=== PATIENT | female | born 1985 | race Caucasian/White ===

== ENCOUNTER 2016-03-17 14:04 | Emergency (ER) | payer OTHER ==
[~2016-03-17] VITALS: Ht 160 cm; Wt 59.0 kg
[2016-03-17] MEDS ORDERED: LORazepam 1 MG TABLET PO ONE (15:30)
[2016-03-17 16:44] VITALS: BP 117/71
== END 2016-03-17 18:17 | disposition home or self-care (01) ==
LOC: EMS 14:06
DX: F41.9 Anxiety disorder, unspecified (principal)
CPT/HCPCS: 81025; 93005; 99285

== ENCOUNTER 2016-10-08 00:53 | Observation (INO) | payer OTHER ==
[~2016-10-08] VITALS: Ht 157.5 cm; Wt 68.0 kg
[2016-10-08] MEDS ORDERED: RINGERS SOLUTION,LACTATED 1,000 ML IV PRN (02:45)
[2016-10-08] MEDS ORDERED: CITRIC ACID/SODIUM CITRATE 30 ML SOLUTION UDCUP PO PRN (02:45)
[2016-10-08] MEDS ORDERED: FentaNYL CITRATE-PF 100 MCG/2 ML VIAL IVP PRN (02:45)
[2016-10-08] MEDS ORDERED: OXYTOCIN 30 UNITS/LACT RINGERS 500 ML IV ONE (02:45)
[2016-10-08] MEDS ORDERED: RINGERS SOLUTION,LACTATED 1,000 ML IV SCH (02:45)
[2016-10-08] MEDS ORDERED: METOCLOPRAMIDE HCL 5 MG/ML 2 ML VIAL IVP PRN (02:45)
[2016-10-08] MEDS ORDERED: OXYGEN THERAPY IH SCH (08:00)
== END 2016-10-08 03:20 | disposition home or self-care (01) ==
LOC: 4S 00:53
PROVIDERS: ADMIT Obstetrics & Gynecology; ATTEND Obstetrics & Gynecology
DX: O26.852 Spotting complicating pregnancy, second trimester (principal); O26.892 Other specified pregnancy related conditions, second trimester; R10.12 Left upper quadrant pain; Z3A.27 27 weeks gestation of pregnancy
CPT/HCPCS: 59025; G0378

== ENCOUNTER 2019-08-02 07:52 | Emergency (ER) | payer OTHER ==
[~2019-08-02] VITALS: Ht 157.5 cm; Wt 60.0 kg
[2019-08-02] MEDS ORDERED: KETOROLAC TROMETHAMINE 30 MG/ML VIAL IVP ONE (09:00)
[2019-08-02] MEDS ORDERED: ONDANSETRON HCL 4 MG/2 ML VIAL IVP ONE (09:00)
[2019-08-02] MEDS ORDERED: SODIUM CHLORIDE 0.9% 2,000 ML IV ONE (09:00)
[2019-08-02] MEDS ORDERED: ACETAMINOPHEN 500 MG TABLET PO ONE (09:00)
[2019-08-02 09:02] LABS: BASOPHILS % (AUTO) 0.2 % (0.0-2.0); EOSINOPHILS % (AUTO) 0 % (1.0-6.0); HEMATOCRIT 37.5 % (36-46); HEMOGLOBIN 12.9 g/dL (12.0-16.0); LYMPHOCYTES # (AUTO) 0.3 K/uL (1.0-4.8); LYMPHOCYTES % (AUTO) 2.1 % (22.0-44.0); MEAN CORPUSCULAR HEMOGLOBIN 30.5 pg (26.0-34.0); MEAN CORPUSCULAR HGB CONC 34.4 G/dL (31.0-37.0); MEAN CORPUSCULAR VOLUME 89 fL (80-100); MONOCYTES # (AUTO) 0.9 K/uL (0.1-1.0); NEUTROPHILS # (AUTO) 14.1 K/uL (1.8-7.7); PLATELET COUNT (AUTO) 196 K/uL (150-450); RED BLOOD CELL COUNT(AUTO) 4.23 MIL/uL (4.00-5.20); RED CELL DISTRIBUTION WIDTH 13.5 % (11.5-14.5)
[2019-08-02 09:03] LABS: NEUTROPHILS % (AUTO) 91.7 % (40.0-70.0)
[2019-08-02 09:12] LABS: ANION GAP 9 mmol/L (8-16); CALCIUM, TOTAL 8.2 mg/dL (8.8-10.5); CARBON DIOXIDE 26 mmol/L (22-29); CHLORIDE 98 mmol/L (98-107); GLOMERULAR FILTR. RATE CALC 58 mL/min (>60); GLUCOSE,RANDOM 133 mg/dL (70-110); POTASSIUM 4.1 mmol/L (3.5-5.1); SODIUM SERUM 133 mmol/L (136-145); UREA NITROGEN, BLOOD 14 mg/dL (7-18)
[2019-08-02 09:29] LABS: ALANINE AMINOTRANSFERASE 23 U/L (12-78); ALBUMIN 2.7 g/dL (3.4-5.0); ALKALINE PHOSPHATASE 82 U/L (46-116); ASPARTATE AMINOTRANSFERASE 20 U/L (15-37); BILIRUBIN,TOTAL 0.5 mg/dL (0.1-1.0); HCG,QUANTITATIVE < 1 mIU/mL (0-6); LIPASE 46 U/L (73-393)
[2019-08-02 09:39] LABS: LACTIC ACID 1.4 mmol/L (0.4-2.0)
[2019-08-02 11:54] LABS: APPEARANCE,URINE CLOUDY (CLEAR); BILIRUBIN,URINE NEGATIVE (NEGATIVE); GLUCOSE, URINE (UA) NEGATIVE (NEGATIVE); KETONES,URINE NEGATIVE (NEGATIVE); LEUKOCYTE ESTERASE ,URINE MODERATE (NEGATIVE); NITRATE,URINE POSITIVE (NEGATIVE); PH,URINE 5.5 (5.0-8.0); PROTEIN,URINE SEE CONFIRM (NEGATIVE); UROBILINOGEN,URINE 0.2 mg/dL (<=1.0)
[2019-08-02 12:02] LABS: OCCULT BLOOD,URINE MODERATE (NEGATIVE); SULFOSALICYLIC ACID,URINE 3+ (Negative)
[2019-08-02 12:03] LABS: BACTERIA,URINE Many /HPF (None Seen); SQUAMOUS EPITHELIAL CELL,UR Many /LPF (None Seen)
[2019-08-02] MEDS ORDERED: CefTRIAXone 1 GM/DEXTROSE 50 ML IV ONE (13:00)
[2019-08-02 14:02] VITALS: BP 119/59
== END 2019-08-02 14:08 | disposition home or self-care (01) ==
LOC: EMS 07:52
DX: N39.0 Urinary tract infection, site not specified (principal); B34.9 Viral infection, unspecified; E86.0 Dehydration; R10.84 Generalized abdominal pain; Z20.828 Contact with and (suspected) exposure to other viral communicable diseases
CPT/HCPCS: 36415; 80053; 81001; 83605; 83690; 84484; 84702; 85025; 87077; 87086; 87186; 87635; 96361; 96365; 96375; 99285; J0696; J1885; J2405; J7030; U0003

== ENCOUNTER 2024-09-25 17:09 | Emergency (ER) | payer OTHER ==
[~2024-09-25] VITALS: Ht 157.5 cm; Wt 59.5 kg
[2024-09-25 17:16] VITALS: BP 131/85; PULSE 86; RESP 18; TEMP 98; O2SAT 99
[2024-09-25] MEDS: LIDOCAINE 5% TRANSDERMAL PATCH TD ONE (18:47)
[2024-09-25] MEDS: ACETAMINOPHEN 500 MG TABLET PO ONE (18:47)
[2024-09-25] MEDS ORDERED: IBUP-1492 PO (20:47)
[2024-09-25] MEDS ORDERED: ACET-3385 PO (20:47)
== END 2024-09-25 21:03 | disposition home or self-care (01) ==
LOC: EMS 17:09
DX: S16.1XXA Strain of muscle, fascia and tendon at neck level, initial encounter (principal); Z98.890 Other specified postprocedural states; V29.99XA Rider (driver) (passenger) of other motorcycle injured in unspecified traffic accident, initial encounter; Y93.89 Activity, other specified; Y92.488 Other paved roadways as the place of occurrence of the external cause; Y99.8 Other external cause status
CPT/HCPCS: 70450; 72125; 99284

== ENCOUNTER 2024-10-14 10:16 | Emergency (ER) | payer OTHER ==
[~2024-10-14] VITALS: Ht 157.5 cm; Wt 59.0 kg
[~2024-10-14 10:16] MED LIST: ACET-3385 PO; IBUP-1492 PO
[2024-10-14 10:24] VITALS: BP 102/76; PULSE 85; RESP 18; TEMP 97.3; O2SAT 98
[2024-10-14 10:39] LABS: APPEARANCE,URINE CLEAR (CLEAR); GLUCOSE, URINE (UA) NEGATIVE (NEGATIVE); LEUKOCYTE ESTERASE ,URINE NEGATIVE (NEGATIVE); NITRATE,URINE NEGATIVE (NEGATIVE); OCCULT BLOOD,URINE SMALL (NEGATIVE); SPECIFIC GRAVITIY, URINE 1.026 (1.003-1.030)
[2024-10-14 11:07] LABS: SQUAMOUS EPITHELIAL CELL,UR Few /LPF (None Seen)
[2024-10-14 11:09] LABS: HCG,QUAL URINE NEGATIVE (NEGATIVE)
[2024-10-14 12:40] LABS: PLATELET COUNT (AUTO) 357 K/uL (150-450); RED BLOOD CELL COUNT(AUTO) 4.91 MIL/uL (4.00-5.20); RED CELL DISTRIBUTION WIDTH 14.3 % (11.5-14.5); WHITE BLOOD COUNT (AUTO) 9.5 K/uL (4.5-11.0)
[2024-10-14 12:49] LABS: CALCIUM, TOTAL 9.0 mg/dL (8.8-10.5); CREATININE 0.72 mg/dL (0.60-1.30); GLOMERULAR FILTR. RATE CALC > 60 mL/min (>60); GLUCOSE,RANDOM 91 mg/dL (70-110); SODIUM SERUM 137 mmol/L (136-145); UREA NITROGEN, BLOOD 11 mg/dL (7-18)
[2024-10-14 13:03] LABS: ALCOHOL, BLOOD (SERUM) < 3 mg/dL (0-10)
[2024-10-14] MEDS: ONDANSETRON HCL 4 MG/2 ML VIAL IVP ONE (13:28)
[2024-10-14] MEDS ORDERED: IOHEXOL 350 MG/ML 100 ML VIAL ONE (13:36)
[2024-10-14] MEDS ORDERED: SODIUM CHLORIDE 0.9% 100 ML ONE (13:36)
[2024-10-14] MEDS: SODIUM CHLORIDE 0.9% 1,000 ML IV ONE (13:38)
[2024-10-14] MEDS ORDERED: IBUP-1492 PO (16:54)
[2024-10-14] MEDS ORDERED: HYDR-4072 PO (16:54)
[2024-10-15 11:39] LABS: ALCOHOL, URINE DRUG SCREEN NEGATIVE (NEGATIVE); AMPHET/METH SCREEN,URINE NEGATIVE (NEGATIVE); BARBITURATE SCREEN, URINE NEGATIVE (NEGATIVE); CANNABINOID SCREEN,URINE NEGATIVE (NEGATIVE); COCAINE SCREEN,URINE NEGATIVE (NEGATIVE); METHADONE SCREEN, URINE NEGATIVE (NEGATIVE)
[2024-10-15 11:48] LABS: PH,URINE DRUG SCREEN 5.5 (5.0-8.0)
== END 2024-10-14 17:17 | disposition home or self-care (01) ==
LOC: EMS 10:22
DX: D25.9 Leiomyoma of uterus, unspecified (principal); M79.604 Pain in right leg; M79.605 Pain in left leg; R10.31 Right lower quadrant pain; Z87.19 Personal history of other diseases of the digestive system; Z79.899 Other long term (current) drug therapy
CPT/HCPCS: 99285; 74177; 96374; 76856; 96361; 96375; 80048; 81001; 83690; 84703; 85025; 36415; 80307; G0480; Q9967; J1171; J2405; J7030; J7050